=== PATIENT | male | born 1985 | race Caucasian/White ===

== ENCOUNTER → 2018-01-18 | Outpatient (CLI) | payer BC ==
--- NOTE | 2018-01-18 13:57 | ECHOS ---
STRESS ECHOCARDIOGRAM INDICATIONS: Chest pain, family history. BASELINE HEART RATE: 89 BASELINE BLOOD PRESSURE: 105/67 MAXIMUM HEART RATE: 170 MAXIMUM BLOOD PRESSURE: 180/98 85% MPHR: 160 100% MPHR: 188 METS: 7.1 MAXIMUM STAGE REACHED: 2 TOTAL EXERCISE TIME: 6:00 CLINICAL INFORMATION: Baseline rhythm is sinus mechanism, rate of 89, normal axis and intervals, normal echocardiogram. Baseline blood pressure 105/67 mmHg. Patient exercised on Galen protocol for 6 minutes reaching peak rate 170 beats per minute which is equal to 90% maximum predicted heart rate. Peak blood pressure 180/98 minute mmHg. Test was terminated due to fatigue. There was no chest pain. Electrocardiograph monitoring revealed no evidence of diagnostic ischemic ST deviation. FINDINGS: Baseline echocardiogram revealed normal wall motion function. At peak exercise, there was normal wall motion augmentation with no hypokinesis or dyskinesis. CONCLUSION: 1. Decreased exercise tolerance with normal electrocardiographic response to exercise. 2. Normal stress echocardiogram with no evidence of stress induced ischemia. MMODL / IJN: [id number] /
== END | disposition home or self-care (01) ==
LOC: RADNMMAIN 09:01
PROVIDERS: ATTEND Family Medicine
DX: Z13.6 Encounter for screening for cardiovascular disorders (principal); I10 Essential (primary) hypertension; E11.9 Type 2 diabetes mellitus without complications; Z82.49 Family history of ischemic heart disease and other diseases of the circulatory system
CPT/HCPCS: 93351; Q9950